=== PATIENT | male | born 1965 | race Caucasian/White ===

== ENCOUNTER 2023-12-21 21:01 | Emergency (ER) | payer SELFPAY ==
[2023-12-21 21:02] VITALS: BP 153/114; PULSE 114; RESP 18; TEMP 36.5; O2SAT 96
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
[2023-12-21 21:08] VITALS: PULSE 121; RESP 18; O2SAT 94
[2023-12-21 21:10] LABS: Add Manual Diff / Slide Review NO; Basophils Absolute Auto 100 /uL (0-100); Basophils Percent Auto 1.5 % (0-2); Eosinophils Absolute Auto 200 /uL (0-450); Eosinophils Percent Auto 3.5 % (2-4); Hematocrit 47.8 % (41-53); Hemoglobin 16.3 g/dL (13.5-17.5); Lymphocytes Absolute Auto 1900 /uL (1100-4500); Mean Corpuscular HGB Conc 34.1 % (30-36); Mean Corpuscular Hemoglobin 31.4 PG (26-34); Monocytes Absolute Auto 300 /uL (0-900); Monocytes Percent Auto 5.3 % (3-14); Neutrophils Absolute Auto 3100 /uL (1500-7000); Neutrophils Percent Auto 55.7 % (50-75); Platelet Count 262 X10^3/uL (150-400); Red Blood Cell Count 5.19 X10^6/uL (4.5-5.9); Red Cell Distribution Width 12.9 % (11.6-14.8); White Blood Cell Count 5.6 X10^3/uL (4.5-11.0)
--- NOTE | 2023-12-21 21:11 | DI.RAD.S_ITS ---
PROCEDURE: XR CHEST 1V INDICATIONS: chest pain TECHNIQUE: One view of the chest was acquired. COMPARISON: None. FINDINGS: Surgical changes and devices: Partially evaluated cervical hardware. Lungs and pleura: Lung volumes are slightly low, but otherwise are clear. No pleural effusions or pneumothorax. Mediastinum: Mediastinal contours appear normal. Heart size is normal. Bones and chest wall: No suspicious bony lesions. Overlying soft tissues appear unremarkable. IMPRESSION: Low lung volumes, but otherwise lungs are clear. Approved by: Stephanie Reddy M.D.,Ph.D. on 12/21/2023 at 22:47
[2023-12-21] MEDS: SODIUM CHLORIDE 0.9% 1,000 ML 1000 ML IV (21:21)
[2023-12-21] MEDS: HALOPERIDOL 5 MG/ML VIAL IV (21:21)
[2023-12-21 21:25] LABS: Alanine Aminotransferase 26 IU/L (<50); Albumin 4.5 g/dL (3.5-5.0); Albumin Globulin Ratio 1.5 (1.0-2.8); Alkaline Phosphatase 110 U/L (38-126); Aspartate Aminotransferase 32 IU/L (17-59); BUN Creatinine Ratio 11.3 (6-22); Bilirubin Total 0.5 mg/dL (0.2-1.3); Blood Urea Nitrogen 11 mg/dL (9-20); Calcium 9.2 mg/dL (8.4-10.2); Carbon Dioxide 25 mmol/L (22-32); Chloride 106 mmol/L (98-107); Estimated Glomerular Filt Rate > 60 mL/min (>60); Ethanol (ETOH) 224 mg/dL; Globulin 3.1 g/dL (1.7-4.1); Glucose 164 mg/dL (70-100); HEMOLYSIS 16 (0-50); Potassium 3.1 mmol/L (3.4-5.1); Sodium 143 mmol/L (137-145); Total Protein 7.6 g/dL (6.3-8.2)
[2023-12-21 21:30] VITALS: BP 113/74; PULSE 107; RESP 26
[2023-12-21 21:50] VITALS: BP 120/85; PULSE 104
[2023-12-21 21:55] LABS: Troponin I < 0.012 ng/mL (0.01-0.034)
[2023-12-21 22:00] VITALS: BP 130/94; PULSE 107; RESP 12
[2023-12-21 22:30] VITALS: BP 156/120; PULSE 107; RESP 15
== END 2023-12-21 23:05 | disposition home or self-care (01) ==
PROVIDERS: Emergency Provider Emergency Medicine
DX: F10.129 Alcohol abuse with intoxication, unspecified (principal); Y90.7 Blood alcohol level of 200-239 mg/100 ml; R22.0 Localized swelling, mass and lump, head; M54.2 Cervicalgia; R07.9 Chest pain, unspecified; Y04.2XXA Assault by strike against or bumped into by another person, initial encounter
CPT/HCPCS: 36415; 70450; 70486; 71045; 72125; 80053; 80320; 84484; 85025; 93005; 93010; 96361; 96374; 99284; J1630